=== PATIENT | male | born 1980 | race American Indian/Alaskan Native ===

== ENCOUNTER 2018-06-17 22:59 | Emergency (ER) | payer SELFPAY ==
[2018-06-17 23:21] VITALS: BP 152/88; PULSE 106; RESP 20; TEMP 99.4; O2SAT 98
== END 2018-06-17 23:13 | disposition left against medical advice (07) ==
LOC: C.ER 22:59
DX: Z02.89 Encounter for other administrative examinations (principal); F19.10 Other psychoactive substance abuse, uncomplicated